=== PATIENT | male | born 1960 | race Caucasian/White ===

== ENCOUNTER 2018-01-23 15:26 | Emergency (ER) | payer OTHER ==
[2018-01-23] MEDS: SOD CHLORIDE 0.9% 1,000 ML IV (15:53)
[2018-01-23 15:59] LABS: ADD MAN DIFF? NO
[2018-01-23 16:05] LABS: BASOPHIL # 0.1 10^3/ul (0.0-0.1); BASOPHILS % 0.4 % (0.0-2.0); EOSINOPHILS # 0.1 10^3/ul (0.0-0.5); EOSINOPHILS % 0.7 % (0.0-7.0); HEMATOCRIT 33.5 % (42.0-52.0); HEMOGLOBIN 10.1 g/dl (14.0-18.0); LYMPHOCYTES # 0.9 10^3/ul (0.8-2.9); LYMPHOCYTES % 7.2 % (15.0-51.0); MEAN CORPUSCULAR HEMOGLOBIN 31.1 pg (29.0-33.0); MEAN CORPUSCULAR HGB CONC 30.1 g/dl (32.0-37.0); MEAN CORPUSCULAR VOLUME 103.1 fl (82.0-101.0); MEAN PLATELET VOLUME 9.6 fl (7.4-10.4); MONOCYTE # 1.2 10^3/ul (0.3-0.9); MONOCYTES % 9.2 % (0.0-11.0); NEUTROPHIL # 10.6 10^3/ul (1.6-7.5); NEUTROPHILS % 81.4 % (39.0-77.0); PLATELET COUNT 311 10^3/UL (140-415); RED BLOOD COUNT 3.25 10^6/ul (4.70-6.10); RED CELL DISTRIBUTION WIDTH 13.5 % (11.5-14.5)
[2018-01-23 16:24] LABS: ALANINE AMINOTRANSFERASE 16 IU/L (13-69); ALBUMIN 3.1 g/dl (3.3-4.9); ALKALINE PHOSPHATASE 40 IU/L (42-121); ANION GAP 15 (8-16); ASPARTATE AMINO TRANSFERASE 29 IU/L (15-46); BLOOD UREA NITROGEN 56 mg/dl (7-20); CALCIUM 7.2 mg/dl (8.4-10.2); CARBON DIOXIDE 27 mmol/L (21-31); CHLORIDE 105 mmol/L (97-110); CREATININE 13.28 mg/dl (0.61-1.24); GLUCOSE 79 mg/dl (70-220); INR 0.96; LIPASE 245 U/L (23-300); POTASSIUM 3.6 mmol/L (3.5-5.1); PROTIME 12.9 Sec (11.9-14.9); SODIUM 143 mmol/L (135-144); TOTAL PROTEIN 5.9 g/dl (6.1-8.1)
[2018-01-23 16:25] LABS: PARTIAL THROMBOPLASTIN TIME 29.7 Sec (25.0-35.0)
[2018-01-23 16:36] LABS: TROPONIN-I 0.065 ng/ml (0.000-0.120)
== END 2018-01-23 18:00 | disposition home or self-care (01) ==
LOC: E/R 15:26
DX: R53.1 Weakness (principal); I10 Essential (primary) hypertension; R07.9 Chest pain, unspecified
CPT/HCPCS: 36415; 71045; 80053; 83690; 84484; 85025; 85610; 85730; 93005; 99285-25

== ENCOUNTER 2018-05-08 10:09 | Observation (INO) | payer OTHER ==
[~2018-05-08 10:09] MED LIST: SOD CHLORIDE 0.9% 1,000 ML IV
[2018-05-08 11:10] LABS: ADD MAN DIFF? NO
[2018-05-08 11:12] LABS: WHITE BLOOD COUNT 9.7 10^3/ul (4.8-10.8)
[2018-05-08 11:12] LABS: BASOPHIL # 0.1 10^3/ul (0.0-0.1); BASOPHILS % 0.5 % (0.0-2.0); EOSINOPHILS # 0.2 10^3/ul (0.0-0.5); EOSINOPHILS % 2.3 % (0.0-7.0); HEMATOCRIT 36.7 % (42.0-52.0); HEMOGLOBIN 11.5 g/dl (14.0-18.0); LYMPHOCYTES % 10.6 % (15.0-51.0); MEAN CORPUSCULAR HEMOGLOBIN 31.5 pg (29.0-33.0); MEAN CORPUSCULAR HGB CONC 31.3 g/dl (32.0-37.0); MEAN CORPUSCULAR VOLUME 100.5 fl (82.0-101.0); MEAN PLATELET VOLUME 9.4 fl (7.4-10.4); MONOCYTE # 0.7 10^3/ul (0.3-0.9); NEUTROPHIL # 7.7 10^3/ul (1.6-7.5); NEUTROPHILS % 79.1 % (39.0-77.0); PLATELET COUNT 262 10^3/UL (140-415); RED BLOOD COUNT 3.65 10^6/ul (4.70-6.10); RED CELL DISTRIBUTION WIDTH 12.6 % (11.5-14.5)
[2018-05-08 11:33] LABS: ALANINE AMINOTRANSFERASE 28 IU/L (13-69); ALBUMIN 3.3 g/dl (3.3-4.9); ALBUMIN/GLOBULIN RATIO 1.17; ALKALINE PHOSPHATASE 52 IU/L (42-121); ANION GAP 14 (5-13); ASPARTATE AMINO TRANSFERASE 34 IU/L (15-46); BLOOD UREA NITROGEN 94 mg/dl (7-20); CARBON DIOXIDE 23 mmol/L (21-31); CHLORIDE 104 mmol/L (97-110); CREATININE 12.23 mg/dl (0.61-1.24); Estimated GFR 4 mL/min (>60); GLUCOSE 96 mg/dl (70-220); INR 0.89; PROTIME 12.1 Sec (11.9-14.9); PT RATIO 0.9; SODIUM 141 mmol/L (135-144); TOTAL PROTEIN 6.1 g/dl (6.1-8.1)
[2018-05-08 11:37] LABS: CALCIUM 6.7 mg/dl (8.4-10.2)
[2018-05-08] MEDS ORDERED: LIDOCAINE 2% (SDV) 5 ML INJ (15:41)
[2018-05-08] MEDS ORDERED: NEOSTIGMINE 3 MG/3 ML SYRINGE (15:41)
[2018-05-08] MEDS ORDERED: PROPOFOL 20 ML (15:41)
[2018-05-08] MEDS ORDERED: SUCCINYLCHOLINE CHLORIDE 100 MG/5 ML SYG IV (15:41)
[2018-05-08] MEDS ORDERED: ROCURONIUM 50 MG INJ (15:41)
[2018-05-08] MEDS ORDERED: GLYCOPYRROLATE 0.4 MG INJ (15:41)
[2018-05-08] MEDS ORDERED: DESMOPRESSIN 20 MCG in SOD CHLORIDE 0.9% 50 ML IVPB (16:00)
[2018-05-08] MEDS: CEFAZOLIN 2 GM/50 ML (PMX) 50 ML IVPB ×2 (16:35)
[2018-05-08] MEDS: POLYMYXIN/BACITRACIN 1L IRRIG (16:41)
[2018-05-08] MEDS: LIDOCAINE 1% (STERILE-PAK) 30 ML INJ (16:41)
[2018-05-08] MEDS ORDERED: EPHEDrine SULFATE 50 MG/5 ML SYG (17:28)
[2018-05-08] MEDS ORDERED: CEFAZOLIN 1 GM INJ (17:28)
[2018-05-08] MEDS ORDERED: FENTAnyl 50 MCG/ML VIAL IV ×2 (17:30)
[2018-05-08] MEDS ORDERED: LABETALOL HCL 20MG INJ IV (17:30)
[2018-05-08] MEDS ORDERED: MEPERIDINE 25 MG INJ IV (17:30)
[2018-05-08] MEDS ORDERED: DIPHENHYDRAMINE 50 MG INJ IV (17:30)
[2018-05-08] MEDS ORDERED: EPHEDrine SULFATE 50 MG/5 ML SYG IV (17:30)
[2018-05-08] MEDS ORDERED: MIDAZOLAM 1 MG/ML 2 ML INJ IV (17:30)
[2018-05-08] MEDS ORDERED: hydrALAzine 20 MG INJ IV ×2 (17:30→19:00)
[2018-05-08] MEDS ORDERED: METOCLOPRAMIDE 10 MG INJ IV (17:30)
[2018-05-08] MEDS ORDERED: HYDROCODONE/APAP (5/325) TAB PO (18:00)
[2018-05-08] MEDS ORDERED: ACETAMINOPHEN 325 MG TAB PO (18:30)
[2018-05-08] MEDS ORDERED: DOCUSATE SODIUM 100 MG CAP PO (18:30)
[2018-05-08] MEDS ORDERED: NACL 0.9% 3 ML SYG IV (18:30)
[2018-05-08] MEDS: ONDANSETRON 4 MG INJ IV (18:43)
[2018-05-08] MEDS: FENTAnyl 50 MCG/ML VIAL IV (18:44)
[2018-05-08] MEDS: HYDROCODONE/APAP (5/325) TAB PO ×2 (19:37→23:30)
[2018-05-08] MEDS: SOD CHLORIDE 0.9% 1,000 ML IV (19:50)
[2018-05-08] MEDS ORDERED: HEPARIN 5,000 UNIT/0.5 ML VIAL (21:08)
[2018-05-08] MEDS: morphine 2 MG INJ IV (21:17)
[2018-05-08] MEDS: HEPARIN 5,000 UNIT/1 ML VIAL SC (21:23)
[2018-05-08 22:08] LABS: ADD MAN DIFF? NO
[2018-05-08 22:09] LABS: WHITE BLOOD COUNT 14.5 10^3/ul (4.8-10.8)
[2018-05-08 22:09] LABS: BASOPHIL # 0.1 10^3/ul (0.0-0.1); BASOPHILS % 0.3 % (0.0-2.0); EOSINOPHILS % 0.1 % (0.0-7.0); HEMATOCRIT 34.1 % (42.0-52.0); HEMOGLOBIN 10.7 g/dl (14.0-18.0); LYMPHOCYTES # 0.6 10^3/ul (0.8-2.9); LYMPHOCYTES % 4.4 % (15.0-51.0); MEAN CORPUSCULAR HEMOGLOBIN 31.8 pg (29.0-33.0); MEAN CORPUSCULAR HGB CONC 31.4 g/dl (32.0-37.0); MEAN CORPUSCULAR VOLUME 101.5 fl (82.0-101.0); MONOCYTE # 1.2 10^3/ul (0.3-0.9); MONOCYTES % 8.5 % (0.0-11.0); NEUTROPHIL # 12.5 10^3/ul (1.6-7.5); NEUTROPHILS % 86.1 % (39.0-77.0); PLATELET COUNT 254 10^3/UL (140-415); RED BLOOD COUNT 3.36 10^6/ul (4.70-6.10); RED CELL DISTRIBUTION WIDTH 12.7 % (11.5-14.5)
[2018-05-09] MEDS: morphine 2 MG INJ IV ×3 (02:09→11:38)
[2018-05-09] MEDS ORDERED: HEPARIN 5,000 UNIT/0.5 ML VIAL ×2 (05:12→13:04)
[2018-05-09] MEDS: HEPARIN 5,000 UNIT/1 ML VIAL SC ×2 (05:17→14:00)
[2018-05-09 05:53] LABS: WHITE BLOOD COUNT 11.6 10^3/ul (4.8-10.8)
[2018-05-09 05:53] LABS: ABNORMAL IP MESSAGE 1; ADD MAN DIFF? NO; BASOPHILS % 0.3 % (0.0-2.0); EOSINOPHILS % 0.1 % (0.0-7.0); HEMATOCRIT 32.7 % (42.0-52.0); HEMOGLOBIN 10.4 g/dl (14.0-18.0); LYMPHOCYTES # 0.6 10^3/ul (0.8-2.9); LYMPHOCYTES % 4.9 % (15.0-51.0); MEAN CORPUSCULAR HEMOGLOBIN 32.5 pg (29.0-33.0); MEAN CORPUSCULAR HGB CONC 31.8 g/dl (32.0-37.0); MEAN CORPUSCULAR VOLUME 102.2 fl (82.0-101.0); MEAN PLATELET VOLUME 9.2 fl (7.4-10.4); MONOCYTES % 8.7 % (0.0-11.0); NEUTROPHIL # 9.9 10^3/ul (1.6-7.5); NEUTROPHILS % 85.6 % (39.0-77.0); PLATELET COUNT 240 10^3/UL (140-415); POSITIVE DIFF @See below; RED CELL DISTRIBUTION WIDTH 12.9 % (11.5-14.5)
[2018-05-09 06:23] LABS: ANION GAP 16 (5-13); BLOOD UREA NITROGEN 99 mg/dl (7-20); CALCIUM 6.4 mg/dl (8.4-10.2); CARBON DIOXIDE 21 mmol/L (21-31); CHLORIDE 105 mmol/L (97-110); GLUCOSE 114 mg/dl (70-220); POTASSIUM 5.7 mmol/L (3.5-5.1); SODIUM 142 mmol/L (135-144)
[2018-05-09 06:30] LABS: Estimated GFR 4 mL/min (>60)
[2018-05-09 06:34] LABS: CREATININE 13.41 mg/dl (0.61-1.24)
[2018-05-09 08:23] LABS: HEPATITIS B SURFACE ANTIGEN NEGATIVE (NEGATIVE)
[2018-05-09] MEDS: CALCIUM ACETATE 667 MG CAP PO ×3 (08:25→18:00)
[2018-05-09] MEDS: AMLODIPINE 5 MG TAB PO (08:25)
[2018-05-09] MEDS: HYDROCODONE/APAP (5/325) TAB PO (08:33)
[2018-05-09] MEDS: NA POLYST SULFON 15 GM/60 ML BTL PO (08:33)
[2018-05-09 08:40] LABS: HEPATITIS B SURFACE ANTIBODY POSITIVE (NEGATIVE)
[2018-05-09] MEDS: ONDANSETRON 4 MG INJ IV (13:40)
== END 2018-05-09 18:15 | disposition home or self-care (01) ==
LOC: SDS 10:09 → 2NE 18:05
PROVIDERS: Surgery Surgical Critical Care
DX: K40.90 Unilateral inguinal hernia, without obstruction or gangrene, not specified as recurrent (principal); I12.0 Hypertensive chronic kidney disease with stage 5 chronic kidney disease or end stage renal disease; N18.6 End stage renal disease; Z99.2 Dependence on renal dialysis; M45.9 Ankylosing spondylitis of unspecified sites in spine; D63.1 Anemia in chronic kidney disease; E78.5 Hyperlipidemia, unspecified
CPT/HCPCS: 49505; 80048; 80053; 85025; 85610; 85730; 86706; 87340; 88302; 90945